=== PATIENT | male | born 1980 | race Caucasian/White ===

== ENCOUNTER → 2019-12-23 | Outpatient (CLI) | payer OTHER ==
--- NOTE | 2019-12-24 01:58 | REP ---
Clinical: Foreign body. Technique: Single AP view of the pelvis. Findings: Osseous structures, joint spaces, and surrounding soft tissues appear normal. No prior examination is available for comparison. No radiodense or obvious radiolucent foreign body appreciated. Impression: No obvious foreign body. Electronically Signed by Silvestre Ruggiero MD 12/24/2019 01:50 A
== END ==
LOC: M RAD 11:51
PROVIDERS: ATTEND Urology
DX: M79.5 Residual foreign body in soft tissue (principal)

== ENCOUNTER → 2020-11-02 | Outpatient (CLI) | payer OTHER ==
[~2020-11-02] MED LIST: ISOVUE-300 61% 50ML VIAL As Ordered ONE; LIDOCAINE 1% MDV 20ML VIAL As Ordered ONE; TRIAMCINOLONE ACETONIDE SUSP 40 MG/ML VIAL (J3301) As Ordered ONE
--- NOTE | 2020-11-02 15:19 | REP ---
INDICATION: SPRAIN OF RT HIP. COMPARISON: None. TECHNIQUE: The procedure was performed under the direct supervision of Dr. Garcia. The benefits and risks including but not limited to pain infection and bleeding and anaphylaxis were explained to the patient and informed consent was obtained. The right femoral neck was localized using fluoroscopic guidance. The skin was prepped and draped in a sterile fashion. 1% lidocaine was used as a local anesthetic. Using fluoroscopic guidance a 22-gauge spinal needle was inserted and advanced to the femoral neck. 0.5 ml of Isovue-300 was injected to verify placement. 10 ml of a solution containing 9 ml of 1% Xylocaine and 1 ml of Kenalog 40 mg was injected. The needle was then removed. The patient tolerated the procedure well and there were no immediate complications. Less than 6 seconds of fluoro time was utilized for this procedure. FINDINGS: None IMPRESSION: Fluoro guidance for right hip injection. <Electronically signed by Viral Carmona > 11/02/20 5000 <Electronically signed by Shad Garcia > 11/02/20 0816
== END ==
LOC: M RADPRO 10:46
PROVIDERS: ATTEND Physician Assistant Surgical
DX: S73.121A Ischiocapsular ligament sprain of right hip, initial encounter (principal); X58.XXXA Exposure to other specified factors, initial encounter; Y92.89 Other specified places as the place of occurrence of the external cause; Y93.89 Activity, other specified; Y99.8 Other external cause status
CPT/HCPCS: 20610; 77002; J3301; Q9967

== ENCOUNTER → 2020-11-17 | Outpatient (CLI) | payer OTHER ==
--- NOTE | 2020-11-17 15:54 | REP ---
INDICATION: OTHER INTERVERTEBRAL DISC DISPLACEMENT, LUMBAR REGION. COMPARISON: None. TECHNIQUE: Axial CT images with multiplanar reformations. FINDINGS: No fracture or malalignment. Vertebral heights and disc heights overall appear preserved. No significant canal stenosis. On the review of axial images, no definite foraminal narrowing. Degenerative changes greater at the L4-5 and L5-S1 levels on the right with disc space narrowing and endplate change. IMPRESSION: No acute findings. Focal degenerative change at L4-5 and L5-S1 on the right. No definite limiting canal or foraminal stenosis or disc herniation. If symptoms persist, MRI recommended for further evaluation. <Electronically signed by Francis Saxena > 11/17/20 1933
== END ==
LOC: M RAD 14:40
PROVIDERS: ATTEND Physical Medicine & Rehabilitation
DX: M51.37 Other intervertebral disc degeneration, lumbosacral region (principal)

== ENCOUNTER → 2021-01-20 | Outpatient (CLI) | payer OTHER ==
[2021-01-20 14:29] LABS: PLATELET COUNT, AUTOMATED 232 10^3/uL (150-450)
[2021-01-20 15:17] LABS: INR 1.02; PARTIAL THROMBOPLASTIN TIME 33.1 SECONDS (24.2-38.5); PROTHROMBIN TIME 13.6 SECONDS (12.5-14.3)
== END ==
LOC: M LAB 13:06
PROVIDERS: ATTEND Physical Medicine & Rehabilitation
DX: M51.26 Other intervertebral disc displacement, lumbar region (principal)